=== PATIENT | female | born 1980 ===

== ENCOUNTER 2021-12-08 07:56 | Day surgery (SDC) | payer OTHER ==
[2021-12-07 09:39] LABS: Hematocrit 38.9 % (30.3-42.9); Hemoglobin 12.3 gm/dl (10.1-14.3); Mean Corpuscular HGB Conc 32 % (30-34); Mean Corpuscular Volume 79 fl (79-97); Platelet Count 315 K/mm3 (140-440); Red Blood Count 4.93 M/mm3 (3.65-5.03); Red Cell Distribution Width 16.2 % (13.2-15.2)
[~2021-12-08 07:56] MED LIST: SODIUM CHLORIDE 0.9% IRRIG SOLN 2000 ML IR ONE
[2021-12-08] MEDS ORDERED: LACTATED RINGERS 1,000 ML ONE (08:05)
[2021-12-08] MEDS ORDERED: LACTATED RINGERS 1,000 ML IV SCH (08:30)
--- NOTE | 2021-12-08 09:29 | Anesthesia Consultation ---
Anesthesia Consult and Med Hx Date of service: 12/08/21 - Airway Anesthetic Teeth Evaluation: Good ROM Head & Neck: Adequate Mental/Hyoid Distance: Adequate Mallampati Class: Class II Intubation Access Assessment: Good - Pulmonary Exam CTA: Yes - Cardiac Exam Cardiac Exam: RRR - Pre-Operative Health Status ASA Pre-Surgery Classification: ASA2 Proposed Anesthetic Plan: General - Cardiovascular System Hx Hypertension: Yes - Central Nervous System Hx Psychiatric Problems: No - Hematic Hx Anemia: Yes - Other Systems Hx Alcohol Use: Yes (Occas) Hx Cancer: No
--- NOTE | 2021-12-08 09:30 | Anesthesia Day of Surgery ---
Anesthesia Day of Surgery - Day of Surgery Patient Examined: Yes Patient H&P Reviewed: Yes Patient is NPO: Yes Beta Blockers: Yes
[2021-12-08] MEDS ORDERED: MIDAZOLAM 2 MG/2 ML INJ ONE (09:46)
[2021-12-08] MEDS ORDERED: MIDAZOLAM 2 MG/2 ML INJ IV ONE (10:00)
[2021-12-08] MEDS ORDERED: LIDOCAINE MPF (2%) 20 MG/1 ML VIAL 5 ML ONE (10:09)
[2021-12-08] MEDS ORDERED: propofoL 200 MG/20 ML VIAL IV ONE (10:09)
[2021-12-08] MEDS ORDERED: fentaNYL 100 MCG/2 ML INJ ONE (10:10)
[2021-12-08] MEDS ORDERED: SODIUM CHLORIDE 0.9% IRRIG SOLN 2000 ML IR ONE (10:35)
[2021-12-08] MEDS ORDERED: KETOROLAC 30 MG/1 ML INJ ONE (10:38)
[2021-12-08] MEDS ORDERED: dexAMETHasone 20 MG/5 ML VIAL ONE (10:38)
[2021-12-08] MEDS ORDERED: ONDANSETRON 4 MG/2 ML INJ ONE (10:38)
[2021-12-08 13:53] VITALS: BP 137/90
--- NOTE | 2021-12-08 19:09 | Post Anesthesia Evaluation ---
- Post Anesthesia Evaluation Patient Participated: Yes Airway Patent: Yes Stable Respiratory Function: Yes Nausea/Vomiting: No Temp > 96.8F: Yes Pain Manageable: Yes Adequeate Hydration: Yes Anesthesia Complications: No Block Receding Appropriately: Not Applicable Patient on Ventilator: No
== END 2021-12-08 12:00 | disposition home or self-care (01) ==
LOC: OR 07:56
PROVIDERS: ATTEND Obstetrics & Gynecology
DX: N92.0 Excessive and frequent menstruation with regular cycle (principal); N85.8 Other specified noninflammatory disorders of uterus; G43.909 Migraine, unspecified, not intractable, without status migrainosus; Z20.822 Contact with and (suspected) exposure to COVID-19; Z79.899 Other long term (current) drug therapy; I10 Essential (primary) hypertension; Z90.49 Acquired absence of other specified parts of digestive tract; Z72.89 Other problems related to lifestyle; Z98.890 Other specified postprocedural states; Z86.2 Personal history of diseases of the blood and blood-forming organs and certain disorders involving the immune mechanism
CPT/HCPCS: 36415; 58558; 84703; 85027; 88305; J1100; J1885; J2250; J2405; J2704; J3010; J3490; J7120; U0003